=== PATIENT | female | born 1945 | race Caucasian/White ===

== ENCOUNTER 2016-09-17 10:05 | Emergency (ER) | payer OTHER, MEDICARE ==
[2016-09-17 10:14] VITALS: BP 116/78; PULSE 64; RESP 16; TEMP 97.3; O2SAT 99
--- NOTE | 2016-09-17 10:39 | EDPHY ---
H & P Stated Complaint: s/f on ice, abrasion/contusion to R forehead, R wrist pain, abrasions Time Seen by Provider: 09/17/16 10:19 HPI/ROS: CHIEF COMPLAINT: Mechanical fall, head injury, right wrist pain HISTORY OF PRESENT ILLNESS: The patient presents to the ED after she sustained a mechanical fall when she slipped and fell on ice. She struck her head quite hard. She had nausea and has a moderate headache. The patient is not anticoagulated. She denies focal numbness or weakness. She denies associated neck pain, back pain, chest pain or abdominal pain. The patient does report an associated injury in her right wrist. She has pain and tenderness along the ulnar aspect of her right wrist and hand. REVIEW OF SYSTEMS: A comprehensive 10 point review of systems is otherwise negative aside from elements mentioned in the history of present illness. Source: Patient Exam Limitations: No limitations - Personal History Current Tetanus/Diphtheria Vaccine: Yes Current Tetanus Diphtheria and Acellular Pertussis (TDAP): Yes - Medical/Surgical History Hx Asthma: No Hx Chronic Respiratory Disease: No Hx Diabetes: No Hx Cardiac Disease: No Hx Renal Disease: No Hx Cirrhosis: No Hx Alcoholism: No Hx HIV/AIDS: No Hx Splenectomy or Spleen Trauma: No Other PMH: pmh- thyroid, breast ca. psh- R sided partial mastectomy - Social History Smoking Status: Former smoker - Physical Exam Exam: General Appearance: Alert, no distress Head: Right temporal hematoma, 5 x 6 cm Eyes: Pupils equal, round, reactive ENT, Mouth: No hemotympanum, no oral trauma Neck: Nontender, trachea midline Respiratory: No chest wall tender, subcutaneous air, lungs clear bilaterally Cardiovascular: Regular rate and rhythm Abdomen: Abdomen is soft and nontender, pelvis stable Skin: No lacerations, No abrasion Back: No midline T/L/S pain Extremities: Tenderness to palpation along the ulnar aspect of the right wrist Neurological: A&Ox3, normal motor function, normal sensory exam Constitutional: Initial Vital Signs Temperature (C) 36.3 C 09/17/16 10:07 Heart Rate 64 09/17/16 10:07 Respiratory Rate 16 09/17/16 10:07 Blood Pressure 116/78 09/17/16 10:07 O2 Sat (%) 99 09/17/16 10:07 O2 Delivery Mode Room Air Allergies/Adverse Reactions: Penicillins Allergy (Verified 09/17/16 10:08) shellfish derived Allergy (Verified 09/17/16 10:13) Home Medications: Medication Instructions Recorded LEVOTHYROXINE SODIUM 09/17/16 Medical Decision Making - Diagnostics Imagin. Right Wrist, 3 views x-ray History: Pain post trauma. Slip and fall on ice. Findings: On the lateral view there is possibly an acute dorsal triquetral avulsion. No malalignment or dislocation is identified. There is severe osteoarthritic narrowing of the joint between the greater multangular and the first metacarpal. I suspect there is an old healed fracture involving the base of the first metacarpal. Impression: 1. Dorsal triquetral avulsion of uncertain chronicity. Correlation with the site of symptoms is recommended. 2. Remote trauma to the base of the first metacarpal, with associated severe osteoarthritis. 2. CT head without contrast: Negative for intracranial hemorrhage or skull fracture. ED Course/Re-evaluation: Given the extent of the patient's hematoma in complaints of headache, a stat CT scan of the head was ordered. Additionally she has tenderness in her right wrist. An x-ray was ordered of this area. Patient arrives with a GCS of 15. Neurologically she is intact. CT scan of the head demonstrates no evidence of an intracranial hemorrhage or skull fracture. X-ray of her wrist does demonstrated triquetrum fracture. The patient will be placed in a Velcro wrist splint. She is not currently anticoagulated. She was examined several times by myself in the ED and remains with a normal neurologic examination. She can be safely observed at home for any new neurologic symptoms. Additionally, the patient will be referred to our on-call orthopedic surgeon for further evaluation of her triquetrum fracture Differential Diagnosis: Differential diagnosis considered includes intracranial hemorrhage, skull fracture Departure - Departure Disposition: Home, Routine, Self-Care Clinical Impression: Scalp contusion Qualifiers: Encounter type: initial encounter Qualifier Code: (S00.03XA) Contusion of scalp , initial encounter Fracture of triquetrum Qualifiers: Encounter type: initial encounter Fracture type: closed Fracture alignment: nondisplaced Laterality: right Qualifier Code: (S62.114A) Nondisplaced fracture of triquetrum [cuneiform] bone, right wrist, initial encounter for closed fracture Headache, post-traumatic, acute Qualifiers: Intractability: not intractable Qualifier Code: (G44.319) Acute post-traumatic headache, not intractable Condition: Good Instructions: Wrist Fracture in Adults (ED) Additional Instructions: 1. Please wear splint as needed for comfort. Ice your wrist 4 to 5 times a day for 30 minutes each time. 2. Take Ibuprofen or Motrin 600 mg by mouth three times a day. 3. Please follow up with orthopedic surgeon you have been referred to for a recheck next week. 4. Please return to the ED for any progressive neurologic symptoms, severe headache, vomiting or other concerns. Referrals: Benito Jerry MD [Medical Doctor] - As per Instructions
--- NOTE | 2016-09-17 11:08 | CT ---
CT Head Without Contrast History: Fell on ice, striking right frontal and temporal area. Comparison: None available. Technique: Axial unenhanced images were obtained from the vertex through the skull base. Dose reduct ion techniques were utilized. Findings: Nicolas-white differentiation is preserved. There is mild diffuse cerebral atrophy with scatte red periventricular and subcortical low attenuation, suggesting chronic microvascular ischemic gliosi s. No intracranial hemorrhage is identified. No extraaxial fluid collections are identified. There is no mass, mass effect or evidence of infarct. Atherosclerotic calcification is present in the dista l internal carotid arteries. The skull and skull base are unremarkable. Mild mucous membrane thicken ing is present in the paranasal sinuses. The mastoid air cells are clear. Impression: 1. No acute intracranial findings. 2. Diffuse cerebral atrophy with scattered periventricular and subcortical low attenuation consistent with chronic microvascular ischemic gliosis. Findings discussed with Rocky Gonsalves today at 1104 hours.
--- NOTE | 2016-09-17 11:27 | DX ---
Right Wrist, 3 views History: Pain post trauma. Slip and fall on ice. Findings: On the lateral view there is possibly an acute dorsal triquetral avulsion. No malalignment or dislocation is identified. There is severe osteoarthritic narrowing of the joint between the grea ter multangular and the first metacarpal. I suspect there is an old healed fracture involving the bas e of the first metacarpal. Impression: 1. Dorsal triquetral avulsion of uncertain chronicity. Correlation with the site of sympt oms is recommended. 2. Remote trauma to the base of the first metacarpal, with associated severe osteoarthritis.
== END 2016-09-17 12:08 | disposition home or self-care (01) ==
DX: S62.114A Nondisplaced fracture of triquetrum [cuneiform] bone, right wrist, initial encounter for closed fracture (principal); S00.03XA Contusion of scalp, initial encounter; G44.319 Acute post-traumatic headache, not intractable; Z87.891 Personal history of nicotine dependence; W00.0XXA Fall on same level due to ice and snow, initial encounter
CPT/HCPCS: 70450; 73110; 99284; L3908

== ENCOUNTER → 2016-09-18 | Outpatient (CLI) | payer OTHER, MEDICARE ==
--- NOTE | 2016-09-18 15:56 | DX ---
3 Views Right Shoulder. Clinical Indications: Pain following trauma. Findings: The humeral head is normally located in the glenoid fossa. A small osseous fragment is see n above the greater tuberosity. This could reflect an acute avulsion fracture associated with rotator cuff insertion. No other fracture is identified. The bone alignment is normal. Postoperative changes are seen in the right axilla. Incidentally, there is a linear ossific density n oted on the inferior aspect of the right clavicle at the junction of the middle and distal thirds. Th is is unchanged from a chest radiograph performed December 06, 2015. Impression: Possible acute right humeral avulsion. Results discussed with Dr. Milligan from [facility].
== END ==
LOC: BMCIMAGING 15:18
PROVIDERS: ATTEND Family Medicine
DX: M25.511 Pain in right shoulder (principal)